=== PATIENT | female | born 1950 | race Caucasian/White ===

== ENCOUNTER → 2016-07-20 | Outpatient (CLI) | payer MEDICARE ==
--- NOTE | 2016-07-20 11:48 | RADIOLOGY REPORT (SQ) ---
EXAM DESCRIPTION: U/S ABDOMEN LIMITED W/O DOP COMPLETED DATE/TIME: 07/20/2016 11:27 am REASON FOR STUDY: HEPATOMEGALY (R16.0) R16.0 HEPATOMEGALY, NOT ELSEWHERE CLASSIFIED R01.1 CARDIAC MURMUR, UNSPECIFIED COMPARISON: None. TECHNIQUE: Dynamic and static grayscale images acquired of the abdomen and recorded on PACS. Additional selected color Doppler and spectral images recorded. LIMITATIONS: None. FINDINGS: PANCREAS: No masses. Visualized pancreatic duct normal caliber. LIVER: The liver measures 22 cm in length. No focal masses. There is fatty infiltration. LIVER VASCULATURE: Normal directional flow of the main portal vein and hepatic veins. GALLBLADDER: Surgically absent. ULTRASOUND-DETECTED SALAZAR'S SIGN: Negative. INTRAHEPATIC DUCTS AND COMMON DUCT: The common bile duct is dilated measured at 11.3 mm. There is no intrahepatic biliary ductal dilatation. INFERIOR VENA CAVA: Normal flow. AORTA: No aneurysm. RIGHT KIDNEY: Normal size. Normal echogenicity. No solid or suspicious masses. No hydronephrosis. No calcifications. PERITONEAL AND RIGHT PLEURAL SPACE: No ascites or effusions. OTHER: No other significant findings. IMPRESSION: Hepatomegaly with fatty infiltration. No other significant findings. Prior cholecystectomy. TECHNICAL DOCUMENTATION: JOB ID: [id number] [employer]- All Rights Reserved <Electronically signed by DAX LAMBERT MD in OV> 07/20/16 1145 [facility]
--- NOTE | 2016-07-25 19:38 | XCELERA REPORT ---
[address] [address] Transthoracic Echocardiogram Report Name: NADYA PRECIADO Age: 66 yrs Gender: Female : 1950 Patient Status: Outpatient Patient Location: RAD Study Date: 07/20/2016 08:36 AM Height: 61 in Weight: 170 lb BSA: 1.8 m2 Procedure: A complete two-dimensional transthoracic echocardiogram was performed (2D, M-mode, spectral and color flow Doppler). The study was technically difficult with many images being suboptimal in quality. Reason For Study: MURMUR Ordering Physician: LASHANDA MONSON Performed By: Gael Venegas Interpretation Summary The left ventricular ejection fraction is normal. Doppler measurements suggest pseudonormalized left ventricular relaxation, which is associated with grade II/IV or mild to moderate diastolic dysfunction There is borderline concentric left ventricular hypertrophy. The left ventricle is grossly normal size. Wall motion cannot be accurately commented on, but no definite regional wall motion abnormalities noted. The right ventricle is grossly normal size. The right ventricle appears to be hypertrophied The right ventricular systolic function is normal. Borderline left atrial enlargement. The right atrium is normal. There is no mitral valve stenosis. There is a trace to mild amount of mitral regurgitation There is mild aortic stenosis There is a peak gradient of 20-25, mean 10-15 mm of Hg. No aortic regurgitation is present. There is a trace or physiologic amount of tricuspid regurgitation Tricuspid regurgitation jet envelope not well defined to measure RV systolic pressure accurately. The aortic root is not well visualized but is probably normal size. The inferior vena cava appeared normal and decreased > 50% with respiration (RAP 5-10 mmHg) Minimal pericardial effusion. MMode/2D Measurements \T\ Calculations RVDd: 2.6 cm LVIDd: 5.1 cm FS: 34.6 % Ao root diam: 2.9 cm IVSd: 0.87 cm LVIDs: 3.4 cm EDV(Teich): 126.5 ml LVPWd: 0.86 cmESV(Teich): 46.3 ml Ao root area: 6.7 cm2 EF(Teich): 63.4 % LA dimension: 3.6 cm LVOT diam: 2.1 cm LVOT area: 3.4 cm2 Doppler Measurements \T\ Calculations MV E max sarika: MV P1/2t max sarika: Ao V2 max: LV V1 max P.9 cm/sec 85.9 cm/sec 236.7 cm/sec 3.4 mmHg MV A max sarika: MV P1/2t: 69.9 msec Ao max PG: LV V1 mean P.2 cm/sec MVA(P1/2t): 3.1 cm2 22.4 mmHg 1.6 mmHg MV E/A: 0.83 MV dec slope: Ao V2 mean: LV V1 max: 359.9 cm/sec2 159.3 cm/sec 92.5 cm/sec Ao mean PG: LV V1 mean: 11.7 mmHg 57.1 cm/sec Ao V2 VTI: 53.8 cmLV V1 VTI: OSCAR(I,D): 1.4 cm2 22.3 cm OSCAR(V,D): 1.3 cm2 SV(LVOT): 75.1 ml PA V2 max: TR max sarika: RAP systole: 81.4 cm/sec 222.5 cm/sec 10.0 mmHg PA max P.7 mmHg TR max P.8 mmHg RVSP(TR): 29.8 mmHg Left Ventricle The left ventricle is grossly normal size. There is borderline concentric left ventricular hypertrophy. The left ventricular ejection fraction is normal. Doppler measurements suggest pseudonormalized left ventricular relaxation, which is associated with grade II/IV or mild to moderate diastolic dysfunction. Wall motion cannot be accurately commented on, but no definite regional wall motion abnormalities noted. Right Ventricle The right ventricle is grossly normal size. The right ventricle appears to be hypertrophied. The right ventricular systolic function is normal. Atria The right atrium is normal. Borderline left atrial enlargement. Interarterial septum not well visualized and not well dopplered. Cannot comment on ASD/PFO presence. Mitral Valve There is mild to moderate mitral annular calcification. There is no mitral valve stenosis. There is a trace to mild amount of mitral regurgitation. Aortic Valve The aortic valve is mildly calcified. There is mild aortic stenosis. There is a peak gradient of 20-25, mean 10-15 mm of Hg. No aortic regurgitation is present. Tricuspid Valve The tricuspid valve is not well visualized, but is grossly normal. There is no tricuspid stenosis. There is a trace or physiologic amount of tricuspid regurgitation. Tricuspid regurgitation jet envelope not well defined to measure RV systolic pressure accurately. Pulmonic Valve The pulmonic valve is not well visualized. Great Vessels The aortic root is not well visualized but is probably normal size. The inferior vena cava appeared normal and decreased > 50% with respiration (RAP 5-10 mmHg). Effusions Minimal pericardial effusion. : LASHANDA MONSON > Monica Overton
== END ==
LOC: RAD 07:29
PROVIDERS: ATTEND Family Medicine
DX: R16.0 Hepatomegaly, not elsewhere classified (principal); R01.1 Cardiac murmur, unspecified
CPT/HCPCS: 76705; 93306

== ENCOUNTER 2016-10-04 11:39 | Emergency (ER) | payer MEDICARE ==
--- NOTE | 2016-10-04 12:14 | ER Document Report ---
ED Medical Screen (RME) - General Chief Complaint: Abdominal Pain Stated Complaint: ABDOMINAL PAIN Time Seen by Provider: 10/04/16 11:57 Notes: Patient reports abdominal pain for the last 4 days. She states she has not had any passage of gas either. She states she tried an enema at home with no relief. She has had one previous surgery which was a hysterectomy. She also states she has had several episodes of vomiting. TRAVEL OUTSIDE OF THE [place] IN LAST 30 DAYS: No - Related Data Allergies/Adverse Reactions: Penicillins Allergy (Verified 10/04/16 11:51) Past Medical History - Social History Frequency of alcohol use: None Drug Abuse: None Endocrine Medical History: Reports: Hx Diabetes Mellitus Type 2 Renal/ Medical History: Denies: Hx Peritoneal Dialysis Malignancy Medical History: Reports: Hx Breast Cancer Past Surgical History: Reports: Hx Cholecystectomy, Hx Hysterectomy, Hx Mastectomy - L breast, Hx Orthopedic Surgery - Bilat shoulder surgery, R shoudler surgery, Hx Tonsillectomy Physical Exam - Vital signs Vitals: Temp Pulse BP Pulse Ox 98.0 F 93 139/47 H 95 10/04/16 11:50 10/04/16 11:50 10/04/16 11:50 10/04/16 11:50 Course - Vital Signs Vital signs: Temp Pulse Resp BP Pulse Ox 98.0 F 93 139/47 H 95 10/04/16 11:50 10/04/16 11:50 10/04/16 11:50 10/04/16 11:50 - Laboratory Result Diagrams: 10/04/16 12:03 10/04/16 12:03
[2016-10-04 12:18] LABS: ABSOLUTE EOSINOPHILS # (AUTO) 0.2 10^3/uL (0.0-0.6); ABSOLUTE LYMPHOCYTES (AUTO) 0.8 10^3/uL (0.5-4.7); ABSOLUTE MONOCYTES (AUTO) 0.3 10^3/uL (0.1-1.4); ABSOLUTE NEUT (AUTO) 4.7 10^3/uL (1.7-8.2); BASOPHILS % (AUTO) 0.3 % (0-2); EOSINOPHILS % (AUTO) 3.9 % (0-6); HEMATOCRIT 39.2 % (36.0-47.0); HEMOGLOBIN 13.5 g/dL (12.0-15.5); HGB HCT DIFFERENCE 1.3; LYMPHOCYTES % (AUTO) 13.3 % (13-45); MEAN CORPUSCULAR HEMOGLOBIN 30.8 pg (27.0-33.4); MEAN CORPUSCULAR HGB CONC 34.5 g/dL (32.0-36.0); MEAN CORPUSCULAR VOLUME 89 fl (80-97); MONOCYTES % (AUTO) 4.7 % (3-13); RED BLOOD COUNT 4.39 10^6/uL (3.72-5.28); RED CELL DISTRIBUTION WIDTH 13.8 % (11.5-14.0); SEGMENTED NEUTROPHILS % (AUTO) 77.8 % (42-78)
[2016-10-04 12:34] LABS: ALANINE AMINOTRANSFERASE 70 U/L (9-52); ALBUMIN 3.7 g/dL (3.5-5.0); ALKALINE PHOSPHATASE 84 U/L (38-126); ANION GAP 10 (5-19); ASPARTATE AMINO TRANSFERASE 37 U/L (14-36); BILIRUBIN,DIRECT 0.5 mg/dL (0.0-0.4); BILIRUBIN,TOTAL 0.8 mg/dL (0.2-1.3); BLOOD UREA NITROGEN 14 mg/dL (7-20); CARBON DIOXIDE 24 mmol/L (22-30); CHLORIDE 87 mmol/L (98-107); CREATININE RESULT 0.45 mg/dL (0.52-1.25); GLUCOSE 148 mg/dL (75-110); POTASSIUM 3.3 mmol/L (3.6-5.0); SODIUM 121.3 mmol/L (137-145)
[2016-10-04] MEDS ORDERED: NORMAL SALINE 1000 ML 1,000 ML IV ONE (12:51)
--- NOTE | 2016-10-04 13:05 | RADIOLOGY REPORT (SQ) ---
EXAM DESCRIPTION: ACUTE ABDOMEN SERIES COMPLETED DATE/TIME: 10/04/2016 12:53 pm REASON FOR STUDY: abd pain/constipated COMPARISON: None. NUMBER OF VIEWS: Three views. TECHNIQUE: Frontal chest, supine abdomen and upright/decubitus abdomen radiographic images acquired. LIMITATIONS: None. FINDINGS: CHEST: Left mastectomy. FREE AIR: None. No abnormal gas collections. BOWEL GAS PATTERN: Nonobstructive pattern. No dilated loops or air fluid levels. CALCIFICATIONS: No suspicious calcifications. HARDWARE: Right upper quadrant clips. Hernia clips. SOFT TISSUES: No gross mass or suggestion of organomegaly. BONES: No acute fracture. No worrisome bone lesions. OTHER: No other significant finding. IMPRESSION: NO RADIOGRAPHIC EVIDENCE FOR ACUTE ABDOMINAL DISEASE. TECHNICAL DOCUMENTATION: JOB ID: [id number] [employer]- All Rights Reserved
[2016-10-04] MEDS ORDERED: MINERAL OIL 30 ML UDCUP PR ONE (13:13)
--- NOTE | 2016-10-04 15:50 | ER Document Report ---
ED GI/ - General Chief Complaint: Abdominal Pain Stated Complaint: ABDOMINAL PAIN Time Seen by Provider: 10/04/16 11:57 Mode of Arrival: Ambulatory Information source: Patient Notes: Pt is a 66 year old female who presents to the ER today for abdominal pain "all over" x 1 day and constipation x 3 days. She states she usually has bowel movements daily. Admits to trying magnesium citrate at home with some relief. She is able to pass gas. She has had a hysterectomy and cholecystectomy in the past, no recent surgeries. She denies fever/chills. She states she's been nauseated so she hasn't eaten or drank anything in 2 days. TRAVEL OUTSIDE OF THE [place] IN LAST 30 DAYS: No - Related Data Allergies/Adverse Reactions: Penicillins Allergy (Verified 10/04/16 11:51) Past Medical History - General Information source: Patient - Social History Smoking Status: Current Every Day Smoker Frequency of alcohol use: None Drug Abuse: None Family History: Reviewed & Not Pertinent Patient has suicidal ideation: No Patient has homicidal ideation: No Endocrine Medical History: Reports: Hx Diabetes Mellitus Type 2 Renal/ Medical History: Denies: Hx Peritoneal Dialysis Malignancy Medical History: Reports: Hx Breast Cancer Past Surgical History: Reports: Hx Cholecystectomy, Hx Hysterectomy, Hx Mastectomy - L breast, Hx Orthopedic Surgery - Bilat shoulder surgery, R shoudler surgery, Hx Tonsillectomy Review of Systems - Review of Systems Constitutional: No symptoms reported EENT: No symptoms reported Cardiovascular: No symptoms reported Respiratory: No symptoms reported Gastrointestinal: See HPI Genitourinary: No symptoms reported Female Genitourinary: No symptoms reported Musculoskeletal: No symptoms reported Skin: No symptoms reported Hematologic/Lymphatic: No symptoms reported Neurological/Psychological: No symptoms reported Physical Exam - Vital signs Vitals: Temp Pulse BP Pulse Ox 98.0 F 93 139/47 H 95 10/04/16 11:50 10/04/16 11:50 10/04/16 11:50 10/04/16 11:50 - Notes Notes: PHYSICAL EXAMINATION: GENERAL: uncomfortable appearing, but in no acute distress. HEAD: Atraumatic, normocephalic. EYES: Pupils equal round and reactive to light, extraocular movements intact, sclera anicteric, conjunctiva are normal. NECK: Normal range of motion, supple without lymphadenopathy LUNGS: CTAB and equal. No wheezes rales or rhonchi. HEART: Regular rate and rhythm without murmurs ABDOMEN: Soft, mild diffuse tenderness, moderate epigastric tenderness. No guarding, no rebound BACK: no vertebral tenderness, normal ROM GI/: no CVA tenderness EXTREMITIES: Normal range of motion, no pitting edema. No cyanosis. NEUROLOGICAL: Cranial nerves grossly intact. Normal sensory/motor exams. PSYCH: Normal mood, normal affect. SKIN: Warm, Dry, normal turgor, no rashes or lesions noted Course - Re-evaluation Re-evalutation: 10/04/16 16:03 acute abdominal series revealed normal bowel gas pattern, no signs of obstruction, pt had large bowel movement after enema here. She states she feel better, her primary care provider was called to consult because pt's sodium is 121.3, pcp states it's usually in the 130's. I consulted with my attending, Dr. Calvin, who agrees with me that this is likely dilutional from her not eating over the past few days and that she can increase her salt intake at home to correct. We did give her a liter of normal saline here and some saltines, she is asymptomatically hyponatremic. - Vital Signs Vital signs: Temp Pulse Resp BP Pulse Ox 98.0 F 93 139/47 H 95 10/04/16 11:50 10/04/16 11:50 10/04/16 11:50 10/04/16 11:50 - Laboratory Result Diagrams: 10/04/16 12:03 10/04/16 12:03 Laboratory results interpreted by me: 10/04/16 12:03 Sodium 121.3 L Potassium 3.3 L Chloride 87 L Creatinine 0.45 L Glucose 148 H Direct Bilirubin 0.5 H AST 37 H ALT 70 H Total Protein 6.0 L Discharge - Discharge Clinical Impression: Dilutional hyponatremia Constipation Qualifiers: Constipation type: unspecified constipation type Qualified Code(s): K59.00 - Constipation, unspecified Condition: Stable Disposition: HOME, SELF-CARE Additional Instructions: Increase your salt intake. Return immediately for any new or worsening symptoms. Follow up with primary care provider, call tomorrow to make followup appointment. Prescriptions: Polyethylene Glycol 3350 [Miralax] 1 cap PO DAILY #527 powder Referrals: LASHANDA MONSON MD [Primary Care Provider] - Follow up as needed
[2016-10-04] MEDS ORDERED: DICYCLOMINE HCL 20 MG TABLET PO ONE (15:57)
[2016-10-04 16:08] VITALS: BP 129/47
== END 2016-10-04 16:08 | disposition home or self-care (01) ==
LOC: ER 11:39
DX: E87.1 Hypo-osmolality and hyponatremia (principal); K59.00 Constipation, unspecified; F17.200 Nicotine dependence, unspecified, uncomplicated
CPT/HCPCS: 99284; 96360; 36415; 85025; 80053; 74022; A9270; J3490; J7030

== ENCOUNTER 2016-10-05 20:53 | Observation (INO) | payer MEDICARE ==
--- NOTE | 2016-10-05 22:47 | ER Document Report ---
ED Medical Screen (RME) - General Chief Complaint: Constipation Stated Complaint: STOMACH PAIN Time Seen by Provider: 10/05/16 22:42 Notes: 66 year old female having abdominal cramps, having nausea, and not being able to eat anything for 3 days now. Seen yesterday and given an enema, told she had low sodium. She reports some lightheadedness, denies dizziness, chest pain, shortness of breath. PMH DMII. TRAVEL OUTSIDE OF THE [place] IN LAST 30 DAYS: No - Related Data Allergies/Adverse Reactions: Penicillins Allergy (Verified 10/05/16 22:06) Past Medical History Endocrine Medical History: Reports: Hx Diabetes Mellitus Type 2 Renal/ Medical History: Denies: Hx Peritoneal Dialysis Malignancy Medical History: Reports: Hx Breast Cancer Past Surgical History: Reports: Hx Cholecystectomy, Hx Hysterectomy, Hx Mastectomy - L breast, Hx Orthopedic Surgery - Bilat shoulder surgery, R shoudler surgery, Hx Tonsillectomy Physical Exam - Vital signs Vitals: Temp 97.5 F 10/05/16 21:57 - General General appearance: Other - Patient appears slightly tired and under the weather but she does not appear to be in distress In distress: None - Abdominal Tenderness: Nontender - No obvious abdominal tenderness, slightly bloated, limited exam from sitting. No: Tender Course - Vital Signs Vital signs: Temp Pulse Resp BP Pulse Ox 97.5 F 10/05/16 21:57
[2016-10-06 00:39] LABS: ABSOLUTE EOSINOPHILS # (AUTO) 0.2 10^3/uL (0.0-0.6); ABSOLUTE LYMPHOCYTES (AUTO) 1.5 10^3/uL (0.5-4.7); ABSOLUTE MONOCYTES (AUTO) 0.7 10^3/uL (0.1-1.4); ABSOLUTE NEUT (AUTO) 6.3 10^3/uL (1.7-8.2); BASOPHILS % (AUTO) 0.3 % (0-2); EOSINOPHILS % (AUTO) 2.1 % (0-6); HEMATOCRIT 39.2 % (36.0-47.0); HEMOGLOBIN 13.8 g/dL (12.0-15.5); HGB HCT DIFFERENCE 2.2; LYMPHOCYTES % (AUTO) 17.6 % (13-45); MEAN CORPUSCULAR HEMOGLOBIN 31.4 pg (27.0-33.4); MEAN CORPUSCULAR HGB CONC 35.1 g/dL (32.0-36.0); MEAN CORPUSCULAR VOLUME 90 fl (80-97); MONOCYTES % (AUTO) 7.4 % (3-13); RED BLOOD COUNT 4.37 10^6/uL (3.72-5.28); SEGMENTED NEUTROPHILS % (AUTO) 72.6 % (42-78); WHITE BLOOD COUNT 8.8 10^3/uL (4.0-10.5)
[2016-10-06 01:03] LABS: ALANINE AMINOTRANSFERASE 71 U/L (9-52); ALBUMIN 3.9 g/dL (3.5-5.0); ALKALINE PHOSPHATASE 103 U/L (38-126); ANION GAP 12 (5-19); ASPARTATE AMINO TRANSFERASE 48 U/L (14-36); BILIRUBIN,DIRECT 0.5 mg/dL (0.0-0.4); BILIRUBIN,TOTAL 0.7 mg/dL (0.2-1.3); BLOOD UREA NITROGEN 10 mg/dL (7-20); CALCIUM 10.1 mg/dL (8.4-10.2); CARBON DIOXIDE 31 mmol/L (22-30); CHLORIDE 81 mmol/L (98-107); CREATININE RESULT 0.45 mg/dL (0.52-1.25); GLUCOSE 130 mg/dL (75-110); LIPASE 66.1 U/L (23-300); SODIUM 124.3 mmol/L (137-145); TOTAL PROTEIN 6.6 g/dL (6.3-8.2)
[2016-10-06] MEDS ORDERED: NORMAL SALINE 1000 ML 500 ML IV ONE (01:55)
[2016-10-06] MEDS ORDERED: ONDANSETRON HCL INJ/PF 4 MG/2 ML SDV IV ONE (01:55)
[2016-10-06] MEDS ORDERED: MORPHINE SULFATE 10 MG/ML INJ IV ONE (01:55)
--- NOTE | 2016-10-06 01:57 | ER Document Report ---
ED GI/ - General Chief Complaint: Constipation Stated Complaint: STOMACH PAIN Time Seen by Provider: 10/05/16 22:42 Notes: Patient is a 66-year-old female who comes emergency department for chief complaint of mid abdominal pain, nausea, and not being able to eat anything for 3 days. She was seen in this department yesterday, given an enema, had a bowel movement yesterday, and she also reports that she was told she had low sodium. She states she felt lightheaded earlier, she denies dizziness, chest pain, shortness of breath. Past medical history of type 2 diabetes, hypothyroidism. She has had a cholecystectomy and hysterectomy. She also states her liver is enlarged but she denies any alcohol or hepatitis history. TRAVEL OUTSIDE OF THE [place] IN LAST 30 DAYS: No - Related Data Allergies/Adverse Reactions: Penicillins Allergy (Verified 10/05/16 22:06) Past Medical History - General Information source: Patient - Social History Smoking Status: Never Smoker Frequency of alcohol use: None Drug Abuse: None Lives with: Family Family History: Reviewed & Not Pertinent Patient has suicidal ideation: No Patient has homicidal ideation: No Endocrine Medical History: Reports: Hx Diabetes Mellitus Type 2 Renal/ Medical History: Denies: Hx Peritoneal Dialysis Malignancy Medical History: Reports: Hx Breast Cancer Past Surgical History: Reports: Hx Cholecystectomy, Hx Hysterectomy, Hx Mastectomy - L breast, Hx Orthopedic Surgery - Bilat shoulder surgery, R shoudler surgery, Hx Tonsillectomy Review of Systems - Review of Systems Constitutional: See HPI EENT: No symptoms reported Cardiovascular: No symptoms reported Respiratory: No symptoms reported Gastrointestinal: See HPI Genitourinary: No symptoms reported Female Genitourinary: No symptoms reported Musculoskeletal: No symptoms reported Skin: No symptoms reported Hematologic/Lymphatic: No symptoms reported Neurological/Psychological: No symptoms reported Physical Exam - Vital signs Vitals: Temp 97.5 F 10/05/16 21:57 Interpretation: Normal - General General appearance: Other - Patient appears tired, however she does not appear to be in distress, she is responsive - HEENT Head: Normocephalic, Atraumatic Eyes: Other - Left eye with lazy eyelid Extraocular movements intact: Yes Eyelashes: Normal Pupils: PERRL Mouth/Lips: Normal Mucous membranes: Dry Pharynx: Normal Neck: Normal - Respiratory Respiratory status: No respiratory distress Chest status: Nontender Breath sounds: Normal Chest palpation: Normal - Cardiovascular Rhythm: Regular. No: Tachycardia Heart sounds: Normal auscultation, S1 appreciated, S2 appreciated Murmur: No - Abdominal Inspection: Normal Distension: No distension Bowel sounds: Normal Tenderness: Tender - Tenderness in the mid abdomen, remaining abdomen unremarkable, no rigidity, no guarding, no rebound tenderness Organomegaly: No organomegaly - Back Back: Normal, Nontender - Extremities General upper extremity: Normal inspection, Nontender, Normal color, Normal ROM , Normal temperature General lower extremity: Normal inspection, Nontender, Normal color, Normal ROM , Normal temperature, Normal weight bearing. No: Marlon's sign - Neurological Neuro grossly intact: Yes Cognition: Normal Orientation: AAOx4 Christine Coma Scale Eye Opening: Spontaneous [place] Coma Scale Verbal: Oriented [place] Coma Scale Motor: Obeys Commands Christine Coma Scale Total: 15 Speech: Normal Motor strength normal: LUE, RUE, LLE, RLE Sensory: Normal - Psychological Associated symptoms: Normal affect, Normal mood - Skin Skin Temperature: Warm Skin Moisture: Dry Skin Color: Normal Course - Re-evaluation Re-evalutation: Patient with mid abdominal tenderness, there is no guarding or rigidity. She does appear tired and mildly uncomfortable. Blood pressure is borderline low but this is unchanged from previously. No fever, no tachycardia. Sodium is still low, potassium is low, magnesium checked and is unremarkable. Patient will be given potassium. No leukocytosis, urinalysis still has not been obtained. Discussed with patient, because of her abdominal pain, no appetite, and inability to eat a CAT scan will be performed. CAT scan showing duodenitis, questionable pancreatitis, however lipase is normal. Patient's pain is midabdomen, not epigastric. Patient does not have an abdominal exam suggesting a surgical emergency. Patient still stating she feels terrible, is weak, does not want to go home. Because of multiple electrolyte abnormalities, weakness, duodenitis, will discuss for admission. Discussed with Dr. Casas. Discussed with Dr. Reeves, patient will be admitted to telemetry, patient and who is now at bedside state agreement. - Vital Signs Vital signs: Temp Pulse Resp BP Pulse Ox 98.2 F 82 18 112/46 L 95 10/06/16 02:20 10/06/16 02:20 10/06/16 02:20 10/06/16 02:20 10/06/16 02:20 - Laboratory Result Diagrams: 10/06/16 00:03 10/06/16 00:03 Laboratory results interpreted by me: 10/06/16 00:03 Sodium 124.3 L Potassium 3.0 L* Chloride 81 L Carbon Dioxide 31 H Creatinine 0.45 L Glucose 130 H Direct Bilirubin 0.5 H AST 48 H ALT 71 H Discharge - Discharge Clinical Impression: Weakness, Hyponatremia, Hypokalemia, Duodenitis Abdominal pain Qualifiers: Abdominal location: generalized Qualified Code(s): R10.84 - Generalized abdominal pain Condition: Stable Disposition: ADMITTED INPATIENT Admitting Provider: Hospitalist Unit Admitted: Telemetry
[2016-10-06] MEDS ORDERED: POTASSI CL 20 MEQ/50 ML RIDER 20 MEQ/50 ML RTUPB IV SCH (03:53)
[2016-10-06] MEDS ORDERED: POTASSI CL 20 MEQ/50 ML RIDER 0 MEQ/0 ML RTUPB IV ONE (04:06)
--- NOTE | 2016-10-06 04:13 | RADIOLOGY REPORT (SQ) ---
EXAM DESCRIPTION: CT ABD/PELVIS WITH IV ORAL COMPLETED DATE/TIME: 10/06/2016 3:48 am REASON FOR STUDY: mid abd pain, nausea, can't eat COMPARISON: None. TECHNIQUE: CT scan of the abdomen and pelvis performed using helical scanning technique with dynamic intravenous contrast injection. No oral contrast. Images reviewed with lung, soft tissue, and bone windows. Reconstructed coronal and sagittal MPR images reviewed. Delayed images for evaluation of the urinary system also acquired. All images stored on PACS. All CT scanners at this facility use dose modulation, iterative reconstruction, and/or weight based d osing when appropriate to reduce radiation dose to as low as reasonably achievable (ALARA). [facility]: Dose Right [facility]: CareDose [facility]: Dose Right [facility]: Teradose 4D [facility]: [employer] CONTRAST TYPE AND DOSE: contrast/concentration: Isovue 370.00 mg/ml; Total Contrast Delivered: 84.0 ml; Total Saline Delivered: 69.0 ml RENAL FUNCTION: Creatinine 0.45 RADIATION DOSE: Up-to-date CT equipment and radiation dose reduction techniques were employed. CTDIv ol: 18.2 mGy. DLP: 1915 mGy-cm.. LIMITATIONS: None. FINDINGS: LOWER CHEST: No significant findings. No nodules or infiltrates. Left mastectomy an exter nal prosthesis. Small coronary arterial calcification. Small calcification associated with the aort ic valve. LIVER: Normal size. No masses. No dilated ducts. SPLEEN: Normal size. No focal lesions. PANCREAS: Small fluid between the pancreatic head and duodenum. Moderate duodenal bowel wall thicken ing and mild duodenal fat streaking involve the 2nd and 3rd portions of the duodenum. GALLBLADDER: Surgically absent. ADRENAL GLANDS: 3.1 cm likely right adrenal adenoma and 1.4 cm left adrenal nodule without suspicious interval change. RIGHT KIDNEY AND URETER: No solid masses. No significant calcifications. No hydronephrosis or hyd roureter. LEFT KIDNEY AND URETER: No solid masses. No significant calcifications. No hydronephrosis or hydr oureter. AORTA AND VESSELS: No aneurysm. No dissection. Renal arteries, SMA, celiac without stenosis. RETROPERITONEUM: No retroperitoneal adenopathy, hemorrhage or masses. BOWEL AND PERITONEAL CAVITY: Moderate duodenal bowel wall thickening and mild duodenal fat streaking involve the 2nd and 3rd portions of the duodenum. Small colonic diverticulosis. APPENDIX: No evidence of appendicitis. PELVIS: No mass. Small free fluid. Normal bladder. ABDOMINAL WALL: Left inguinal hernia are free repair clips. BONES: No significant or acute findings. OTHER: No other significant finding. IMPRESSION: Moderate duodenitis and possible mild pancreatitis. TECHNICAL DOCUMENTATION: JOB ID: [id number] Quality ID # [id number]: Final reports with documentation of one or more dose reduction techniques (e.g., Au tomated exposure control, adjustment of the mA and/or kV according to patient size, use of iterative reconstruction technique) 2010 [employer]- All Rights Reserved
[2016-10-06] MEDS ORDERED: POTASSIUM CHLORIDE 10 MEQ TABLET.SA PO ONE (04:38)
[2016-10-06] MEDS ORDERED: NORMAL SALINE 1000 ML 1,000 ML IV PRN (04:44)
[2016-10-06] MEDS ORDERED: CIPROFLOXACIN 400 MG/D5W RTU 400 MG/200 ML RTUPB IV ONE (04:46)
[2016-10-06] MEDS ORDERED: METRONIDAZOLE 500 MG/NS RTU 100 ML IV ONE (04:46)
[2016-10-06] MEDS: POTASSI CL 20 MEQ/50 ML RIDER 20 MEQ/50 ML RTUPB IV SCH ×6 (05:36→19:53)
[2016-10-06] MEDS ORDERED: GLUCAGON,HUMAN RECOMB 1 MG INJ IM PRN (07:33)
[2016-10-06] MEDS ORDERED: INSULIN LISPRO 100 UNIT/ML 3 ML VIAL SUBCUT PRN (07:33)
[2016-10-06] MEDS ORDERED: DEXTROSE 40% GEL 15 GM TUBE PO PRN ×2 (07:33)
[2016-10-06] MEDS ORDERED: DEXTROSE 50%-WATER 25 GM/50 ML DISP.SYRIN IV PRN ×2 (07:33)
[2016-10-06] MEDS ORDERED: ALBUTEROL SULFATE 0.083% NEB 2.5 MG/3 ML AMPUL NEB PRN (07:41)
[2016-10-06 07:46] LABS: APPEARANCE,URINE CLEAR; BILIRUBIN,URINE NEGATIVE (NEGATIVE); GLUCOSE, URINE NEGATIVE (NEGATIVE); KETONES,URINE NEGATIVE (NEGATIVE); LEUKOCYTE ESTERASE,URINE NEGATIVE (NEGATIVE); NITRITE,URINE NEGATIVE (NEGATIVE); PROTEIN,URINE NEGATIVE (NEGATIVE); URINE SPECIFIC GRAVITY 1.039; UROBILINOGEN,URINE NEGATIVE mg/dL (<2.0)
[2016-10-06] MEDS ORDERED: PROMETHAZINE HCL 25 MG TABLET PO PRN (07:46)
[2016-10-06] MEDS ORDERED: ACETAMINOPHEN 325 MG TABLET PO PRN (07:46)
[2016-10-06] MEDS ORDERED: NICOTINE 21 MG/24 HR PATCH.TD24 TD PRN (07:57)
--- NOTE | 2016-10-06 08:11 | PDOC H&P ---
History of Present Illness Admission Date/PCP: 10/06/16 05:45 LASHANDA MONSON MD, [facility] Patient complains of: Epigastric abdominal pain, nausea History of Present Illness: NADYA PRECIADO is a 66 year old female with underlying anxiety, hypothyroidism, hyperlipidemia, type 2 diabetes mellitus, chronic diastolic congestive heart failure by July 2016 echocardiogram, mildly elevated liver functions, with associated enlarged liver felt secondary to recently diagnosed hemochromatosis, and status post left mastectomy for carcinoma who presents to the emergency room for the second time in 3 days for evaluation of at times pronounced intermittent sharp epigastric abdominal pain, nausea, with patient being unable to eat due to combination of the pain and nausea. One episode of vomiting. No diarrhea or dysuria. No chest pain. Patient does state that she had chills several days ago, but none since then. No fever. No unusual oral intake. No friends or family have similar complaints. No prior such episodes. Was seen in the emergency room approximately 24 hours prior to this presentation and was given an enema for suspected constipation. Had a subsequent bowel movement, but symptoms have persisted. Mild hyponatremia, with are only prior level approximately 2 days ago when she came to the emergency room. However, patient does state she was told by her primary care provider when last seen 3 months ago that her sodium was somewhat low. Patient has been discussed with emergency room nurse practitioner who evaluated the patient. . Dictation via voice recognition software. Laboratory results are listed in [facility] and are reviewed. X-ray summary results are listed below, with full report(s) reviewed. . EKG reviewed. No prior EKG available for comparison. Social history/personal habits: . Has children. Retired. 2 pack-a-day smoker. No alcohol or illicit drug use. Allergies/adverse reactions are listed in [facility] [employer] and are reviewed. Uncertain if she can tolerate cephalosporins. Home medications initially autopopulated into [employer] may not accurately reflect patient's true medications, dosages, and/or frequencies. chief technician x ray to reconcile medications. Unfortunately, patient not certain of all medications/dosages/frequencies. REVIEW OF SYSTEMS: Constitutional: See history and present illness. Eyes: Wears glasses. ENT: No swallowing problems or complaints. Denies hearing loss. Pulmonary: No current complaints. Cardiovascular: No current complaints, including chest pain. Gastrointestinal: See history and present illness. Skin: No current complaints, including rashes. Hematologic: Denies easy bruising. Neurologic: No current complaints, including numbness or tingling. Musculoskeletal: No current or chronic joint complaints, such as arthritis. Psychiatric: Anxiety. Endocrine: No current complaints, including polyuria. Genitourinary: No current complaints, including dysuria. PHYSICAL EXAMINATION: 5 feet 1 inches tall. 77.8 kg. BMI 32.4 kg/m. Blood pressure 127/67. Pulse 87 and regular. 91% saturation on room air. Respirations are 20 and unlabored. Temperature 98.2. is present at her side; patient approves. Female emergency room nurse Agustin is present. Obese somewhat chronically ill-appearing female who nevertheless appears approximately her stated age. Appears to feel slightly fatigued, and somewhat under the weather. Otherwise, pleasant awake alert and cooperative. Mildly anxious, without agitation. Skin is warm and dry. No grossly obvious evidence of rash in areas of skin examined. No subcutaneous nodules palpated. ENT: Hearing grossly normal to normal conversation. Tongue midline on protrusion pink and slightly tacky. Eyes: No scleral icterus. Pupils equal and reactive to light at 4 mm. [place] conjunctivae. Neck is supple and nontender to gentle active range of motion and palpation. Midline trachea. No palpable thyroid nodule mass enlargement or tenderness. Lymphatic: No palpable cervical or clavicular nodes. Neck and lymphatic exams limited by patient body habitus. Psychiatric: Reasonable insight into acute and chronic medical issues. Oriented to time location and why here. Lungs: Auscultation reveals clear and equal breath sounds bilaterally. No use of accessory respiratory muscles. Occasional slightly coarse cough. Cardiovascular: Heart regular rate and rhythm, without gallop murmur or rub. No carotid or abdominal aortic bruits. No ankle or pedal edema. Palpable dorsalis pedis pulses. Abdomen:soft obese nontender in lower abdomen, with mild to moderate epigastric abdominal discomfort to palpation, without guarding or peritoneal signs, with positive bowel sounds. Unable to adequately evaluate abdomen for masses or organomegaly due to body habitus and discomfort. Extremities: Feet are warm and dry. No calf tenderness to compression. No grossly obvious visual evidence of calf swelling. Gentle manipulation of lower extremities fails to reveal any obvious evidence of injury or instability to knees hips or ankles. Neurologic: Moves upper extremities grossly normally. Patellar reflexes absent. Absent Babinski. Light touch is intact at feet. Dorsiflexion and plantarflexion of feet 5 / 5 and symmetric. Past Medical History Cardiac Medical History: Reports: Hyperlipidema Denies: Atrial Fibrillation, Congestive Heart Failure, Coronary Artery Disease, DVT, Myocardial Infarction, Hypertension, Pulmonary Embolism Pulmonary Medical History: Denies: Asthma, Chronic Obstructive Pulmonary Disease (COPD), Sleep Apnea EENT Medical History: Reports: Eyes - Glasses Denies: Ears, Throat Neurological Medical History: Denies: Hemorrhagic CVA, Ischemic CVA, Seizures Endocrine Medical History: Reports: Diabetes Mellitus Type 2, Hypothyroidism Denies: Diabetes Mellitus Type 1, Hyperthyroidism Renal/ Medical History: Reports: None Malignancy Medical History: Reports: Breast Cancer GI Medical History: Reports: Other - Elevated liver functions, with enlarged liver. Denies: Cirrhosis, Gastroesophageal Reflux Disease, Hepatitis Musculoskeltal Medical History: Denies: Arthritis Skin Medical History: Reports: None Psychiatric Medical History: Reports: General Anxiety Disorder, Tobacco Dependency Denies: Alcohol Dependency, Depression, Substance Abuse Hematology: Reports: Other - Recently diagnosed hemochromatosis. Infectious Medical History: Denies: Hepatitis B, Hepatitis C Past Surgical History Past Surgical History: Reports: Cholecystectomy, Hysterectomy, Mastectomy - Left , Orthopedic Surgery - Bilat shoulder surgery, R shoudler surgery, Tonsillectomy Social History Information Source: Patient, Emergency Med Personnel, [facility] Records Lives with: Family, Spouse/Significant other Smoking Status: Current Every Day Smoker Frequency of Alcohol Use: None Drugs: None - Advance Directive Resuscitation Status: Full Code Surrogate healthcare decision maker:: Family History Family History: Reviewed & Not Pertinent Parental Family History Reviewed: Yes - Both parents after open heart surgery. Children Family History Reviewed: Yes - Healthy Sibling(s) Family History Reviewed.: Yes - Hypertension Medication/Allergy Home Medications: Atorvastatin Calcium [Lipitor 20 mg Tablet] 10 mg PO QHS 10/06/16 Citalopram Hydrobromide [Celexa 40 mg Tablet] 40 mg PO DAILY 10/06/16 Glipizide [Glipizide Xl] 10 mg PO QAM 10/06/16 Levothyroxine Sodium [Synthroid 0.1 mg Tablet] 0.1 mg PO DAILY 10/06/16 Lisinopril/Hydrochlorothiazide [Zestoretic 10-12.5 mg Tablet] 1 tab PO DAILY Metformin HCl [Glucophage] 1,000 mg PO BIDBS 10/06/16 Ciprofloxacin HCl [Cipro 500 mg Tablet] 500 mg PO BID #9 tablet 10/07/16 Famotidine [Pepcid 20 mg Tablet] 20 mg PO BID #12 tablet 10/07/16 Metronidazole [Flagyl 500 mg Tablet] 500 mg PO TID #28 tablet 10/07/16 Ondansetron HCl [Zofran 4 mg Tablet] 1 - 2 tab PO Q4H PRN #10 tablet 10/07/16 RX: Lisinopril [Prinivil 10 mg Tablet] 10 mg PO DAILY #30 tablet 10/07/16 Allergies/Adverse Reactions: Penicillins Allergy (Verified 10/05/16 22:06) Physical Exam Vital Signs: Temp Pulse Resp BP Pulse Ox 98.2 F 82 19 127/67 H 94 10/06/16 02:20 10/06/16 02:20 10/06/16 07:00 10/06/16 06:30 10/06/16 07:00 Results Impressions: Abdomen/Pelvis CT 10/06/16 00:00 IMPRESSION: Moderate duodenitis and possible mild pancreatitis. Assessment & Plan - Diagnosis (1) Tobacco dependency Is this a current diagnosis for this admission?: Yes Plan: As needed nicotine patch. (2) Duodenitis Is this a current diagnosis for this admission?: Yes Plan: Ice chips only. As needed pain medication; as needed Phenergan also. IV fluids. IV Pepcid. IV Cipro and Flagyl. I have strongly encouraged patient not to get out of bed without notifying staff , to avoid a fall with injury. Knee high SCDs for DVT prophylaxis, along with subcutaneous Lovenox. Impression and plans were discussed with patient and , both of whom concur. Time spent in evaluation and management of patient: 68 minutes. (3) Elevated LFTs Is this a current diagnosis for this admission?: Yes (4) Epigastric abdominal pain Is this a current diagnosis for this admission?: Yes (5) Hypokalemia Is this a current diagnosis for this admission?: Yes Plan: Follow-up chemistry, with further potassium replacement as needed. (6) Hyponatremia Is this a current diagnosis for this admission?: Yes Plan: Seems to be a chronic problem for patient; noted by primary care provider 3 months ago. Will check urine and serum osmolarity, along with urine sodium. Repeat chemistry. (7) Diabetes mellitus type 2 in obese Is this a current diagnosis for this admission?: Yes Plan: Accu-Cheks with appropriate sliding scale coverage. Resume home medications as appropriate once these have been determined and reviewed. (8) HLD (hyperlipidemia) Qualifiers: Hyperlipidemia type: unspecified Qualified Code(s): E78.5 - Hyperlipidemia , unspecified Is this a current diagnosis for this admission?: Yes Plan: Resume home medications as appropriate once these have been determined and reviewed. (9) Hypothyroid Qualifiers: Hypothyroidism type: unspecified Qualified Code(s): E03.9 - Hypothyroidism , unspecified Is this a current diagnosis for this admission?: Yes Plan: Resume home medications as appropriate once these have been determined and reviewed. - Time Time Spent: 50 to 70 Minutes Anticipated discharge: Home Within: within 48 hours
[2016-10-06] MEDS ORDERED: LANSOPRAZOLE 30 MG TAB.RAP.DR PO ONE (09:00)
[2016-10-06] MEDS ORDERED: FAMOTIDINE INJ/PF 20 MG/2 ML SDV IV ONE (09:00)
[2016-10-06] MEDS: ENOXAPARIN SODIUM INJ 40 MG/0.4 ML DISP.SYRIN SUBCUT SCH (09:11)
[2016-10-06 09:16] LABS: ANION GAP 8 (5-19); BLOOD UREA NITROGEN 7 mg/dL (7-20); CALCIUM 8.3 mg/dL (8.4-10.2); CARBON DIOXIDE 23 mmol/L (22-30); CHLORIDE 90 mmol/L (98-107); CREATININE RESULT 0.34 mg/dL (0.52-1.25); GLUCOSE 66 mg/dL (75-110); POTASSIUM 3.2 mmol/L (3.6-5.0); SODIUM 121.1 mmol/L (137-145)
[2016-10-06] MEDS: MORPHINE SULFATE 10 MG/ML INJ IV PRN ×3 (10:34→22:44)
[2016-10-06] MEDS: NORMAL SALINE 1000 ML 1,000 ML IV PRN ×2 (12:14→21:38)
[2016-10-06] MEDS ORDERED: GLIPIZIDE XL 5 MG TAB.ER.24 PO ONE (14:30)
[2016-10-06] MEDS ORDERED: CITALOPRAM HYDROBROMIDE 20 MG TABLET PO ONE (14:30)
[2016-10-06 15:45] LABS: ANION GAP 9 (5-19); BLOOD UREA NITROGEN 5 mg/dL (7-20); CALCIUM 8.8 mg/dL (8.4-10.2); CARBON DIOXIDE 23 mmol/L (22-30); CHLORIDE 97 mmol/L (98-107); GLUCOSE 93 mg/dL (75-110); POTASSIUM 3.5 mmol/L (3.6-5.0); SODIUM 128.5 mmol/L (137-145)
[2016-10-06] MEDS: METRONIDAZOLE 500 MG/NS RTU 100 ML IV SCH ×2 (16:24→21:40)
[2016-10-06] MEDS: LANSOPRAZOLE 30 MG TAB.RAP.DR PO SCH (16:27)
[2016-10-06] MEDS: CIPROFLOXACIN 400 MG/D5W RTU 400 MG/200 ML RTUPB IV SCH (17:36)
--- NOTE | 2016-10-06 21:33 | EKG REPORT ---
SEVERITY:- ABNORMAL ECG - ACCELERATED JUNCTIONAL RHYTHM BORDERLINE T ABNORMALITIES, INFERIOR LEADS BORDERLINE PROLONGED QT INTERVAL NONSPECIFIC ST-T CHANGES LAT CHEST LEADS VS ISCHEMIA : Confirmed by: Monica Overton 06-Oct-2016 21:33:04
[2016-10-06] MEDS: FAMOTIDINE INJ/PF 20 MG/2 ML SDV IV SCH (21:39)
[2016-10-06] MEDS ORDERED: ATORVASTATIN CALCIUM 10 MG TABLET PO SCH (22:00)
[2016-10-06] MEDS ORDERED: ATORVASTATIN CALCIUM 20 MG TABLET PO SCH (22:00)
[2016-10-07 05:17] LABS: BLOOD UREA NITROGEN 4 mg/dL (7-20); CALCIUM 8.1 mg/dL (8.4-10.2); CHLORIDE 102 mmol/L (98-107); CREATININE RESULT 0.37 mg/dL (0.52-1.25); GLUCOSE 110 mg/dL (75-110); MAGNESIUM 1.6 mg/dL (1.6-2.3); POTASSIUM 3.6 mmol/L (3.6-5.0)
[2016-10-07] MEDS: LANSOPRAZOLE 30 MG TAB.RAP.DR PO SCH (05:27)
[2016-10-07] MEDS: METRONIDAZOLE 500 MG/NS RTU 100 ML IV SCH (05:27)
[2016-10-07 05:28] LABS: ANION GAP 5 (5-19); CARBON DIOXIDE 23 mmol/L (22-30); SODIUM 129.5 mmol/L (137-145)
[2016-10-07] MEDS ORDERED: LEVOTHYROXINE SODIUM 0.1 MG TABLET PO SCH ×2 (06:00→10:00)
[2016-10-07] MEDS: CIPROFLOXACIN 400 MG/D5W RTU 400 MG/200 ML RTUPB IV SCH (06:30)
[2016-10-07] MEDS ORDERED: GLIPIZIDE XL 5 MG TAB.ER.24 PO SCH (08:00)
[2016-10-07] MEDS: FAMOTIDINE INJ/PF 20 MG/2 ML SDV IV SCH (09:24)
[2016-10-07] MEDS: ENOXAPARIN SODIUM INJ 40 MG/0.4 ML DISP.SYRIN SUBCUT SCH (09:24)
[2016-10-07] MEDS ORDERED: CITALOPRAM HYDROBROMIDE 20 MG TABLET PO SCH ×2 (10:00→22:00)
[2016-10-07] MEDS ORDERED: (PENDING PHARMACY ID) (Citalopram Hydrobromide [Celexa 40 Mg Tablet] 40 MG) PO SCH (10:00)
[2016-10-07] MEDS ORDERED: MAGNESIUM SULFATE/D5W 1 GM/100 ML RTUPB IV SCH (10:00)
[2016-10-07 11:06] VITALS: BP 104/53
--- NOTE | 2016-10-07 13:52 | PDOC DISCHARGE SUMMARY ---
General - Admit/Disc Date/PCP Admission Date/Primary Care Provider: 10/06/16 07:41 LASHANDA MONSON MD Discharge Date: 10/07/16 - Discharge Diagnosis (1) Abdominal pain Summary: Resolved secondary to duodenitis and likely gastritis (2) Duodenitis Is this a current diagnosis for this admission?: Yes Summary: Cipro and Flagyl for total of 10 day course (3) Hyponatremia Is this a current diagnosis for this admission?: Yes Summary: Patient has been on half-way HCTZ, her serum osmolality is low as well as urine osmolality as well. So (4) Elevated LFTs Is this a current diagnosis for this admission?: Yes Summary: Likely related to fatty liver (5) Epigastric abdominal pain Is this a current diagnosis for this admission?: Yes (6) Tobacco dependency Is this a current diagnosis for this admission?: Yes Summary: Counseled (7) Diabetes mellitus type 2 in obese Is this a current diagnosis for this admission?: Yes Summary: Continue current medications (8) HLD (hyperlipidemia) Is this a current diagnosis for this admission?: Yes Summary: Continue statin (9) History of left breast cancer Is this a current diagnosis for this admission?: Yes - Additional Information Resuscitation Status: Full Code Discharge Diet: As Tolerated Discharge Activity: Activity As Tolerated, Balance Activity w/Rest Home Medications: Atorvastatin Calcium [Lipitor 20 mg Tablet] 10 mg PO QHS 10/06/16 Citalopram Hydrobromide [Celexa 40 mg Tablet] 40 mg PO DAILY 10/06/16 Glipizide [Glipizide Xl] 10 mg PO QAM 10/06/16 Levothyroxine Sodium [Synthroid 0.1 mg Tablet] 0.1 mg PO DAILY 10/06/16 Lisinopril/Hydrochlorothiazide [Zestoretic 10-12.5 mg Tablet] 1 tab PO DAILY Metformin HCl [Glucophage] 1,000 mg PO BIDBS 10/06/16 Ciprofloxacin HCl [Cipro 500 mg Tablet] 500 mg PO BID #9 tablet 10/07/16 Famotidine [Pepcid 20 mg Tablet] 20 mg PO BID #12 tablet 10/07/16 Lisinopril [Prinivil 10 mg Tablet] 10 mg PO DAILY #30 tablet 10/07/16 Metronidazole [Flagyl 500 mg Tablet] 500 mg PO TID #28 tablet 10/07/16 Ondansetron HCl [Zofran 4 mg Tablet] 1 - 2 tab PO Q4H PRN #10 tablet 10/07/16 History of Present Illness Patient complains of: Abdominal pain and nausea History of Present Illness: NADYA PRECIADO is a 66 year old female with underlying anxiety, hypothyroidism, hyperlipidemia, type 2 diabetes mellitus, chronic diastolic congestive heart failure by July 2016 echocardiogram, mildly elevated liver functions, with associated enlarged liver felt secondary to recently diagnosed hemochromatosis, and status post left mastectomy for carcinoma who presents to the emergency room for the second time in 3 days for evaluation of at times pronounced intermittent sharp epigastric abdominal pain, nausea, with patient being unable to eat due to combination of the pain and nausea. One episode of vomiting. No diarrhea or dysuria. No chest pain. Patient does state that she had chills several days ago, but none since then. No fever. No unusual oral intake. No friends or family have similar complaints. No prior such episodes. Was seen in the emergency room approximately 24 hours prior to this presentation and was given an enema for suspected constipation. Had a subsequent bowel movement, but symptoms have persisted. Mild hyponatremia, with are only prior level approximately 2 days ago when she came to the emergency room. However, patient does state she was told by her primary care provider when last seen 3 months ago that her sodium was somewhat low. Patient has been discussed with emergency room nurse practitioner who evaluated the patient. . Hospital Course Hospital Course: Patient was admitted to the telemetry floor on an observation status. She was given IV hydration of normal saline at 150 cc/h. She was started on IV Cipro and Flagyl empirically. She was given Zofran and morphine for symptom management. She was started on IV Pepcid and Prevacid. She was given sips and chips for diet. This morning she feels completely better. She has no nausea she is hungry. Tolerating regular diet we will transition her antibiotics to oral and send her home. We did change her lisinopril/hydrochlorothiazide to plain lisinopril due to her chronic hyponatremia. Her sodium was 121 when she came in, it is 130 today. She will follow her primary care provider in 1 week Physical Exam Vital Signs: Temp Pulse Resp BP Pulse Ox 97.7 F 71 17 104/53 L 96 10/07/16 11:04 10/07/16 11:04 10/07/16 11:04 10/07/16 11:04 10/07/16 11:04 Intake & Output 10/06/16 10/07/16 10/08/16 06:59 06:59 06:59 Intake Total 2325 Output Total 300 Balance 2024 General appearance: PRESENT: no acute distress, obese, well-developed, well- nourished Head exam: PRESENT: atraumatic, normocephalic Eye exam: PRESENT: conjunctiva pink, EOMI, PERRLA. ABSENT: scleral icterus Ear exam: PRESENT: normal external ear exam Mouth exam: PRESENT: moist, tongue midline Neck exam: ABSENT: carotid bruit, JVD, lymphadenopathy, thyromegaly Respiratory exam: PRESENT: clear to auscultation crystal. ABSENT: rales, rhonchi, wheezes Cardiovascular exam: PRESENT: RRR. ABSENT: diastolic murmur, rubs, systolic murmur Pulses: PRESENT: normal dorsalis pedis pul Vascular exam: PRESENT: normal capillary refill GI/Abdominal exam: PRESENT: normal bowel sounds, soft. ABSENT: distended, guarding, mass, organolmegaly, rebound, tenderness Rectal exam: PRESENT: deferred Extremities exam: PRESENT: full ROM. ABSENT: calf tenderness, clubbing, pedal edema Neurological exam: PRESENT: alert, awake, oriented to person, oriented to place , oriented to time, oriented to situation, CN II-XII grossly intact. ABSENT: motor sensory deficit Psychiatric exam: PRESENT: appropriate affect, normal mood. ABSENT: homicidal ideation, suicidal ideation Skin exam: PRESENT: dry, intact, warm. ABSENT: cyanosis, rash Results Laboratory Results: 10/07/16 04:40 10/06/16 10/07/16 15:12 04:40 Sodium 128.5 L 129.5 L Potassium 3.5 L 3.6 Chloride 97 L 102 Carbon Dioxide 23 23 Anion Gap 9 5 BUN 5 L 4 L Creatinine 0.40 L 0.37 L Est GFR ( Amer) > 60 > 60 Est GFR (Non-Af Amer) > 60 > 60 Glucose 93 110 Calcium 8.8 8.1 L Magnesium 1.6 Impressions: Abdomen/Pelvis CT 10/06/16 00:00 IMPRESSION: Moderate duodenitis and possible mild pancreatitis. Qualifiers PATEINT BEING DISCHARGED WITH ANY OF THE FOLLOWING DIAGNOSIS?: No Plan Discharge Plan: Home with family Time Spent: Less than 30 Minutes
== END 2016-10-07 11:44 | disposition home or self-care (01) ==
LOC: ER 20:53 → UNDOADMIN 10-06 05:45 → EH 10-06 05:45 → 4N 10-06 07:31 → EH 10-06 07:31 → INTOOBSV 10-06 07:41 → 4N 10-06 07:41
PROVIDERS: ADMIT Family Medicine; ATTEND Family Medicine
DX: K29.80 Duodenitis without bleeding (principal); R10.13 Epigastric pain; E87.1 Hypo-osmolality and hyponatremia; R79.89 Other specified abnormal findings of blood chemistry; Z79.899 Other long term (current) drug therapy; F17.210 Nicotine dependence, cigarettes, uncomplicated; E11.9 Type 2 diabetes mellitus without complications; E66.9 Obesity, unspecified; E78.5 Hyperlipidemia, unspecified; F41.9 Anxiety disorder, unspecified; I50.32 Chronic diastolic (congestive) heart failure; R16.0 Hepatomegaly, not elsewhere classified; E83.119 Hemochromatosis, unspecified; R11.2 Nausea with vomiting, unspecified; E03.9 Hypothyroidism, unspecified; E87.6 Hypokalemia; Z85.3 Personal history of malignant neoplasm of breast; Z79.84 Long term (current) use of oral hypoglycemic drugs; Z90.12 Acquired absence of left breast and nipple; Z90.710 Acquired absence of both cervix and uterus; Z90.49 Acquired absence of other specified parts of digestive tract
CPT/HCPCS: 93005; 99285; 96361; 96374; 96375; 36415 ×2; 82962 ×2; 83690; 83735 ×2; 83930; 83935; 84300; 85025; 80048 ×2; 80053; 81001; 74177; 93010; G0378 ×2; A9270 ×7; J2270; J1650; J3490 ×2; J2405; J3480; J7030; J0744 ×2; S0028

== ENCOUNTER → 2017-01-18 | Outpatient (CLI) | payer MEDICARE ==
[2017-01-18 13:47] LABS: HEMATOCRIT 25.6 % (36.0-47.0); HEMOGLOBIN 8.1 g/dL (12.0-15.5); HGB HCT DIFFERENCE -1.3; MEAN CORPUSCULAR HEMOGLOBIN 23.3 pg (27.0-33.4); MEAN CORPUSCULAR HGB CONC 31.4 g/dL (32.0-36.0); MEAN CORPUSCULAR VOLUME 74 fl (80-97); RED BLOOD COUNT 3.46 10^6/uL (3.72-5.28); WHITE BLOOD COUNT 8.8 10^3/uL (4.0-10.5)
== END ==
LOC: LAB 13:06
PROVIDERS: ATTEND Internal Medicine Hematology & Oncology
DX: D50.9 Iron deficiency anemia, unspecified (principal); C50.919 Malignant neoplasm of unspecified site of unspecified female breast
CPT/HCPCS: 36415; 85027

== ENCOUNTER → 2017-01-25 | Outpatient (CLI) | payer MEDICARE ==
[2017-01-25 11:02] LABS: HEMATOCRIT 32.3 % (36.0-47.0); HEMOGLOBIN 10.3 g/dL (12.0-15.5); HGB HCT DIFFERENCE -1.4; MEAN CORPUSCULAR HEMOGLOBIN 24.9 pg (27.0-33.4); MEAN CORPUSCULAR HGB CONC 31.8 g/dL (32.0-36.0); RED BLOOD COUNT 4.13 10^6/uL (3.72-5.28); RED CELL DISTRIBUTION WIDTH 31.9 % (11.5-14.0); WHITE BLOOD COUNT 7.3 10^3/uL (4.0-10.5)
[2017-01-25 11:17] LABS: MEAN CORPUSCULAR VOLUME 78 fl (80-97)
== END ==
LOC: LAB 10:41
PROVIDERS: ATTEND Internal Medicine Hematology & Oncology
DX: C50.919 Malignant neoplasm of unspecified site of unspecified female breast (principal); D50.9 Iron deficiency anemia, unspecified
CPT/HCPCS: 36415; 85027